=== PATIENT | female | born 1965 | race Caucasian/White ===

== ENCOUNTER 2023-07-09 06:51 | Day surgery (SDC) | payer BC ==
[~2023-07-09] VITALS: Ht 177.8 cm; Wt 124.7 kg
[2023-07-09] MEDS ORDERED: HYDR200T73 PO (08:10)
[2023-07-09] MEDS ORDERED: LISI10TA27 PO (08:10)
[2023-07-09] MEDS ORDERED: DULO30CA52 PO (08:10)
[2023-07-09] MEDS ORDERED: CHOL50004 PO (08:10)
[2023-07-09] MEDS ORDERED: PREG25CA19 PO (08:10)
[2023-07-09 08:15] VITALS: BP 124/65; PULSE 74; RESP 16; TEMP 97.7; O2SAT 99
[2023-07-09 08:24] VITALS: RESP 16; O2SAT 99
== END 2023-07-09 09:15 | disposition home or self-care (01) ==
LOC: SSTAY O 06:51
PROVIDERS: ATTEND Radiology Vascular & Interventional Radiology
DX: R22.1 Localized swelling, mass and lump, neck (principal); Z53.8 Procedure and treatment not carried out for other reasons; F32.A Depression, unspecified; M19.90 Unspecified osteoarthritis, unspecified site; I10 Essential (primary) hypertension; G89.29 Other chronic pain; E66.9 Obesity, unspecified; Z68.39 Body mass index [BMI] 39.0-39.9, adult; Z79.899 Other long term (current) drug therapy; Z88.1 Allergy status to other antibiotic agents
CPT/HCPCS: 10005; 76536